=== PATIENT | female | born 1975 | race African-American/Black ===

== ENCOUNTER 2019-11-13 06:57 | Day surgery (SDC) | payer BC ==
[2019-11-13] MEDS ORDERED: Ringers Lactate 1,000 ML IV ONE (07:06)
[2019-11-13] MEDS ORDERED: LIDOCAINE 1% MPF 5 ML VIAL ONE (09:01)
[2019-11-13] MEDS ORDERED: propofoL 200 MG/20 ML VIAL IV ONE (09:01)
--- NOTE | 2019-11-13 09:47 | ENDO RPT ---
[address], [address] COLONOSCOPY PROCEDURE REPORT EXAM DATE: 11/13/2019 PATIENT NAME: Jessica Bell MR #: [id number] BIRTHDATE: 1975 ATTENDING: Catarino Rico Dr STATUS: outpatient COMMUNICATION LECTURER: Kathy Iqbal SQUEEGEE OPERATOR, Kim Hinojosa SQUEEGEE OPERATOR, Barbara Dietz RN, and Padmini Baca RN INDICATIONS: The patient is a 44 yr old Female here for a colonoscopy due to abdominal pain, change in bowel habits, and constipation PROCEDURE PERFORMED: Colonoscopy with biopsy MEDICATIONS: Per Anesthesia. ESTIMATED BLOOD LOSS: None CONSENT: The patient understands the risks and benefits of the procedure and understands that these risks include, but are not limited to: sedation, allergic reaction, infection, perforation and/or bleeding. Alternative means of evaluation and treatment include, among others: physical exam, x-rays, and/or surgical intervention. The patient elects to proceed with this endoscopic procedure. DESCRIPTION OF PROCEDURE: During intra-op preparation period all mechanical medical equipment was checked for proper function. Hand hygiene and appropriate measures for infection prevention was taken. Procedure, possible complications, alternatives including, but not limited to possibility of bleeding, perforation, tear, infection, sepsis, need for surgery, need for blood transfusion, were explained to the patient. After the risks, benefits and alternatives of the procedure were thoroughly explained, Informed consent was verified, confirmed and timeout was successfully executed by the treatment team. The patient was placed in the left lateral position. A digital rectal exam was performed and revealed no abnormalities of the rectum. After appropriate level of anesthesia, the scope was passed. The EC-[id number] ([id number]) endoscope was introduced through the anus and advanced to the terminal ileum which was intubated for a short distance. The quality of the prep was good. The instrument was then slowly withdrawn as the colon was fully examined. Scope withdrawal time was 8 minutes. COLON FINDINGS: Non-bleeding mucosal ulceration, intermittent across the area examined, was present in the terminal ileum. Multiple random biopsies were performed using cold forceps with random biopsies of the terminal ileum / right colon / left colon / rectum. 2 mm flat polyp in the rectum, s/p cold polypectomy. Small internal hemorrhoids were found. Retroflexed views revealed small hemorrhoids. The scope was then completely withdrawn from the patient and the procedure terminated. ADVERSE EVENTS: There were no complications. IMPRESSIONS: 1. Non-bleeding mucosal ulceration in the terminal ileum with patchy inflammation / edema / erythema / multiple aphthous ulcers; multiple random biopsies were performed using cold forceps with random biopsies of the terminal ileum / right colon / left colon / rectum 2. 2 mm flat polyp in the rectum, s/p cold polypectomy 3. Small internal hemorrhoids 4. Intubation to terminal ileum RECOMMENDATIONS: 1. await biopsy results 2. avoid NSAIDS for 2 weeks 3. check [employer] serologies, CBC, CMP, iron indices, Vitamin B12, folate, ESR, CRP if not done recently RECALL: Return in 3 year(s) for Colonoscopy. Catarino Rico Dr eSigned: Catarino Rico Dr 11/13/2019 9:47 AM cc: CPT CODES: ICD9 CODES: 465.82 Ulceration of intestine PATIENT NAME: Jessica Bell MR#: [id number]
[2019-11-13 10:03] VITALS: TEMP 96.9
[2019-11-13 10:04] VITALS: BP 131/81; O2SAT 97
== END 2019-11-13 10:10 | disposition home or self-care (01) ==
LOC: OR 06:57
PROVIDERS: ATTEND Internal Medicine Gastroenterology
PROC: 0DBP8ZX Excision of Rectum, Via Natural or Artificial Opening Endoscopic, Diagnostic (ICD-10-PCS; 2019-11-13)
PROC: 0DBF8ZX Excision of Right Large Intestine, Via Natural or Artificial Opening Endoscopic, Diagnostic (ICD-10-PCS; 2019-11-13)
PROC: 0DBG8ZX Excision of Left Large Intestine, Via Natural or Artificial Opening Endoscopic, Diagnostic (ICD-10-PCS; 2019-11-13)
PROC: 0DBB8ZX Excision of Ileum, Via Natural or Artificial Opening Endoscopic, Diagnostic (ICD-10-PCS; principal; 2019-11-13 08:45)
DX: K52.9 Noninfective gastroenteritis and colitis, unspecified (principal); K62.1 Rectal polyp; K63.3 Ulcer of intestine; K64.8 Other hemorrhoids; E11.9 Type 2 diabetes mellitus without complications; E66.01 Morbid (severe) obesity due to excess calories; Z68.43 Body mass index [BMI] 50.0-59.9, adult
CPT/HCPCS: 88305; 45380; J2704; J7120